=== PATIENT | female | born 1990 | race Caucasian/White ===

== ENCOUNTER 2017-10-30 20:46 | Emergency (ER) | payer OTHER ==
[2017-10-30] MEDS ORDERED: Famotidine 20 MG/2 ML SDV IVPUSH ONE (21:05)
[2017-10-30] MEDS ORDERED: diphenhydrAMINE 50 MG/ML SDV IVPUSH ONE (21:05)
[2017-10-30] MEDS ORDERED: Sodium Chloride 0.9% 1,000 ML IV ONE (21:05)
[2017-10-30] MEDS ORDERED: methylPREDNISolone Sodium Succinate 125 MG/2 ML SDV IVPUSH ONE (21:05)
--- NOTE | 2017-10-30 21:42 | EDM.PDOC ---
ED HPI GENERAL MEDICAL PROBLEM - General Chief Complaint: Allergic Reaction Stated Complaint: ALLERGIC REACTION [id number] Time Seen by Provider: 10/30/17 21:41 Source of Information: Reports: Patient History Limitations: Reports: No Limitations - History of Present Illness INITIAL COMMENTS - FREE TEXT/NARRATIVE: onset itchy rash since last night, took OTC Rx with '0', now has some SOB. - Related Data Allergies Allergy/AdvReac Type Severity Reaction Status Date / Time No Known Allergies Allergy Verified 10/30/17 20:53 Past Medical History HEENT History: Reports: Allergic Rhinitis Psychiatric History: Reports: Depression - Past Surgical History Other HEENT Surgeries/Procedures: deviated septum suregery Social & Family History - Tobacco Use Smoking Status *Q: Never Smoker Second Hand Smoke Exposure: No - Recreational Drug Use Recreational Drug Use: No ED ROS ALLERGIC REACTION - Review of Systems Review Of Systems: ROS reveals no pertinent complaints other than HPI. ED EXAM GENERAL NO PERIP PULSE - Physical Exam Exam: See Below Exam Limited By: No Limitations General Appearance: Alert, WD/WN, No Apparent Distress, Anxious, Other ( discomfort) Ears: Hearing Grossly Normal Throat/Mouth: Normal Voice, No Airway Compromise Head: Atraumatic Neck: Non-Tender, Full Range of Motion Respiratory/Chest: No Respiratory Distress Cardiovascular: Regular Rate, Rhythm GI/Abdominal: Soft, Non-Tender Neurological: Alert, Oriented, Normal Cognition, Normal Gait, No Motor/Sensory Deficits Psychiatric: Normal Affect, Normal Mood Skin Exam: Warm, Dry, Normal Color, Rash Lymphatic: No Adenopathy Course - Vital Signs Last Recorded V/S: Last Vital Signs Temp 36.6 C 10/30/17 20:49 Pulse 95 10/30/17 20:49 Resp 18 10/30/17 20:49 BP 154/90 H 10/30/17 20:49 Pulse Ox 100 10/30/17 20:49 - Orders/Labs/Meds Meds: Medications Discontinued Medications Generic Name Dose Route Start Last Admin Trade Name [place] PRN Reason Stop Dose Admin Diphenhydramine HCl 25 mg 10/30/17 21:05 10/30/17 21:11 Benadryl IVPUSH 10/30/17 21:06 25 mg ONETIME ONE Administration Famotidine 20 mg 10/30/17 21:05 10/30/17 21:16 Pepcid IVPUSH 10/30/17 21:06 20 mg ONETIME ONE Administration Sodium Chloride 1,000 mls @ 999 mls/hr 10/30/17 21:05 10/30/17 21:11 Normal Saline IV 10/30/17 22:05 999 mls/hr .BOLUS ONE Administration Methylprednisolone Sodium Succinate 125 mg 10/30/17 21:05 10/30/17 21:14 Solu-Medrol IVPUSH 10/30/17 21:06 125 mg ONETIME ONE Administration - Re-Assessments/Exams Free Text/Narrative Re-Assessment/Exam: 10/30/17 22:36 re-exam; sleeping arousable, no c/o feels good now. Departure - Departure Time of Disposition: 22:37 Disposition: Home, Self-Care 01 Condition: Good Clinical Impression: Allergy Qualifiers: Encounter type: initial encounter Qualified Code(s): T78.40XA - Allergy, unspecified, initial encounter - Discharge Information Instructions: Allergies, Adult, [id number] Forms: ED Department Discharge Additional Instructions: 1) try CLARITIN as antihistamine instead of BENADRYL 2) recheck if there is any change or concern rx given; medrol dospak
== END 2017-10-30 22:45 | disposition home or self-care (01) ==
LOC: DL.ED 20:46
DX: T78.40XA Allergy, unspecified, initial encounter (principal)
CPT/HCPCS: 96361; 96374; 96375; 99284; J1200; J2930; J7030; 99283; J3490